=== PATIENT | female | born 1955 | race Caucasian/White ===

== ENCOUNTER 2016-07-14 08:38 | Day surgery (SDC) | payer MEDICAID ==
[2016-07-13 15:40] VITALS: BMI 23.8
[2016-07-14] VITALS (9 sets, daily range): BP systolic 106–142; BP diastolic 70–89; PULSE 67–77; RESP 12–20; Ht 165.1 cm; Wt 63.7 kg
[~2016-07-14] VITALS: Ht 165.1 cm; Wt 63.7 kg
[~2016-07-14 08:38] MED LIST: CEFAZOLIN 2 GM/50 ML (PMX) 50 ML IVPB SCH; HYDR-906 PO; LISI-313 PO; METO-448 PO; NOL20 PO; SOD CHLORIDE 0.9% 1,000 ML IV SCH
[2016-07-14 09:58] LABS: ADD SCAN DIFF NO
[2016-07-14 10:01] LABS: BASOPHILS % 0.5 % (0.0-2.0); EOSINOPHILS # 0.3 10^3/ul (0.0-0.5); EOSINOPHILS % 4.3 % (0.0-7.0); HEMATOCRIT 34.8 % (37.0-47.0); HEMOGLOBIN 11.8 g/dl (12.0-16.0); LYMPHOCYTES # 1.5 10^3/ul (0.8-2.9); LYMPHOCYTES % 25.6 % (15.0-51.0); MEAN CORPUSCULAR HEMOGLOBIN 30.8 pg (29.0-33.0); MEAN CORPUSCULAR HGB CONC 33.9 g/dl (32.0-37.0); MEAN CORPUSCULAR VOLUME 90.9 fl (82.0-101.0); MEAN PLATELET VOLUME 9.5 fl (7.4-10.4); MONOCYTE # 0.5 10^3/ul (0.3-0.9); NEUTROPHIL # 3.6 10^3/ul (1.6-7.5); NEUTROPHILS % 61.4 % (39.0-77.0); PLATELET COUNT 222 10^3/UL (140-415); RED BLOOD COUNT 3.83 10^6/ul (4.20-5.40); RED CELL DISTRIBUTION WIDTH 11.9 % (11.5-14.5); WHITE BLOOD COUNT 5.9 10^3/ul (4.8-10.8)
[2016-07-14 10:18] LABS: INR 0.87; PROTIME 11.8 Sec (12.2-14.2); PT RATIO 0.9
[2016-07-14 10:25] LABS: ALBUMIN 3.5 g/dl (3.3-4.9); ALBUMIN/GLOBULIN RATIO 1.25; TOTAL PROTEIN 6.3 g/dl (6.1-8.1)
[2016-07-14] MEDS ORDERED: LIDOCAINE 1% (MPF) 30 ML INJ ONE (10:25)
[2016-07-14 10:29] LABS: CREATININE 0.73 mg/dl (0.44-1.00)
[2016-07-14] MEDS ORDERED: PROPOFOL 20 ML ONE (10:29)
[2016-07-14] MEDS ORDERED: CEFAZOLIN 1 GM INJ ONE (10:30)
[2016-07-14] MEDS ORDERED: FENTAnyl 50 MCG/ML VIAL ONE (10:30)
[2016-07-14] MEDS ORDERED: MIDAZOLAM 1 MG/ML 2 ML INJ ONE (10:30)
[2016-07-14 10:43] LABS: PARTIAL THROMBOPLASTIN TIME 21.7 Sec (25.0-35.0)
[2016-07-14] MEDS ORDERED: hydrALAzine 20 MG INJ IV PRN (11:00)
[2016-07-14] MEDS ORDERED: LABETALOL HCL 20MG INJ IV PRN (11:00)
[2016-07-14] MEDS ORDERED: ONDANSETRON 4 MG INJ IV PRN (11:00)
[2016-07-14] MEDS ORDERED: HYDROmorphONE (0.2 MG/ML) 10ML SYG IV PRN ×3 (11:00)
[2016-07-14] MEDS ORDERED: MEPERIDINE 25 MG INJ IV PRN (11:00)
[2016-07-14] MEDS ORDERED: FENTAnyl 50 MCG/ML VIAL IV PRN ×2 (11:00)
--- NOTE | 2016-07-14 11:29 | OPR ---
DATE OF OPERATION: 07/14/2016 PREOPERATIVE DIAGNOSIS: History of breast cancer, need for chemotherapy port removal. POSTOPERATIVE DIAGNOSIS: History of breast cancer, need for chemotherapy port removal. OPERATION PERFORMED: Removal of chemotherapy port, left subclavian location. ANESTHESIA: General. ANESTHESIOLOGIST: Dr. Moya SURGEON: Mike Brennan MD INSULATION WORKER FURNACE INSTALLER: Dr. Garnica INDICATIONS FOR PROCEDURE: The patient is a 61-year-old female. She is well known to [place]. I previo usly treated her for invasive cancer of her right breast. She has completed her treatment including chemotherapy and requested removal of her chemo port. She consented and was scheduled for surgery. DESCRIPTION OF PROCEDURE: The patient was brought to the operating theater, placed under IV sedatio n. The area of the left anterior thoracic region where the port was located was prepped and draped in the usual sterile fashion. The tissue surrounding the port was then infiltrated with 1% lidocain e local anesthetic with epinephrine. The previous surgical incisional scar was then reincised. Sub cutaneous tissue was dissected with cautery. The pseudocapsule surrounding the port was dissected. The port was elevated and gently removed while pressure was held in an infraclavicular location. T he port appeared to be grossly intact, but it was sent for pathologic analysis just to confirm that it was intact. The wound was irrigated. Minimal bleeding was controlled with cautery. The skin wa s then reapproximated with 4-0 Vicryl suture in subcuticular fashion, and benzoin and Steri-Strips w ere applied. The patient tolerated procedure well. The estimated blood loss was 10 mL. There were no complications, and the patient was transported in stable condition to the recovery room. Dictated By: MIKE BRENNAN MD TL/ERICK Conf#: [id number] DID#: [id number]
--- NOTE | 2016-07-14 12:25 | RADRPT ---
PROCEDURE: XR Chest. CLINICAL INDICATION: Preoperative. Chest port removal. TECHNIQUE: Single frontal view. COMPARISON: 11/02/2015. FINDINGS: There is a left internal jugular vein tunnel chest port with the tip in the lower superior vena cava . Surgical clips are present in the right axilla. The lungs are clear. The heart size is normal. There is no pleural effusion. There is no pneumothorax. IMPRESSION: 1. Left chest port noted. 2. Prior right axillary surgery. 3. Clear lungs. RPTAT: QQ .Jesús Frausto MD, MD Date Time Electronically viewed and signed by .Jesús Frausto MD, MD on 07/14/2016 12:25 .R/
--- NOTE | 2016-07-14 19:32 | RADRPT ---
Vent Rate: 68 bpm RR Interval: 0 msec AL Interval: 146 msec QRS Duration: 94 msec QT Interval: 448 msec QTC Interval: 476 msec P-R-T [place]: 60 - 27 - 33 degrees Normal sinus rhythm Normal ECG Electronically Signed By: Rolf Zurita [id number]
== END 2016-07-14 12:20 | disposition home or self-care (01) ==
LOC: SDS 08:38
PROVIDERS: ATTEND Surgery Surgical Oncology
DX: Z45.2 Encounter for adjustment and management of vascular access device (principal); Z85.3 Personal history of malignant neoplasm of breast; I10 Essential (primary) hypertension
CPT/HCPCS: 36590; 71010; 80053; 85025; 85610; 85730; 88300; 93005; J0690; J2250; J3010; Z7512; Z7610

== ENCOUNTER 2016-08-09 11:21 | Emergency (ER) | payer MEDICAID ==
[~2016-08-09] VITALS: Ht 154.9 cm; Wt 65.5 kg
[~2016-08-09 11:21] MED LIST changes: -CEFAZOLIN 2 GM/50 ML (PMX) 50 ML IVPB SCH; -HYDR-906 PO; -LISI-313 PO; -SOD CHLORIDE 0.9% 1,000 ML IV SCH
[2016-08-09 11:24] VITALS: Ht 154.9 cm; Wt 65.5 kg
[2016-08-09] MEDS ORDERED: HYDROCODONE/APAP (5/325) TAB PO STA (12:20)
[2016-08-09] MEDS ORDERED: KETOROLAC 30 MG INJ IM STA (12:20)
[2016-08-09] MEDS ORDERED: SOD CHLORIDE 0.9% 1,000 ML IV STA (12:22)
[2016-08-09] MEDS ORDERED: KETOROLAC 30 MG INJ IV STA (12:22)
[2016-08-09 13:12] LABS: ADD SCAN DIFF NO
[2016-08-09 13:16] LABS: ADD UMIC YES; URINE BILIRUBIN (Dip) NEGATIVE (NEGATIVE); URINE BLOOD (Dip) TRACE (NEGATIVE); URINE COLOR LT. YELLOW (YELLOW); URINE GLUCOSE (Dip) NEGATIVE (NEGATIVE); URINE KETONES (Dip) NEGATIVE (NEGATIVE); URINE LEUKOCYTE ESTERASE (Dip) 1+ (NEGATIVE); URINE NITRITE (Dip) NEGATIVE (NEGATIVE); URINE TOTAL PROTEIN (Dip) NEGATIVE (NEGATIVE); URINE UROBILINOGEN (Dip) 0.2 E.U./dL (0.1-1.0)
[2016-08-09 13:25] LABS: BASOPHIL # 0.1 10^3/ul (0.0-0.1); BASOPHILS % 0.5 % (0.0-2.0); EOSINOPHILS # 0.4 10^3/ul (0.0-0.5); EOSINOPHILS % 3.6 % (0.0-7.0); HEMATOCRIT 35.5 % (37.0-47.0); HEMOGLOBIN 11.9 g/dl (12.0-16.0); LYMPHOCYTES # 1.4 10^3/ul (0.8-2.9); LYMPHOCYTES % 12.1 % (15.0-51.0); MEAN CORPUSCULAR HEMOGLOBIN 30.6 pg (29.0-33.0); MEAN CORPUSCULAR HGB CONC 33.5 g/dl (32.0-37.0); MEAN CORPUSCULAR VOLUME 91.3 fl (82.0-101.0); MEAN PLATELET VOLUME 9.7 fl (7.4-10.4); MONOCYTES % 8.5 % (0.0-11.0); NEUTROPHIL # 8.6 10^3/ul (1.6-7.5); NEUTROPHILS % 74.8 % (39.0-77.0); PLATELET COUNT 231 10^3/UL (140-415); RED BLOOD COUNT 3.89 10^6/ul (4.20-5.40); RED CELL DISTRIBUTION WIDTH 12.3 % (11.5-14.5); WHITE BLOOD COUNT 11.5 10^3/ul (4.8-10.8)
[2016-08-09 13:27] LABS: BACTERIA,URINE OCCASIONAL; URINE RBCS 0-2 /HPF (0)
[2016-08-09 13:36] LABS: ALBUMIN 4.5 g/dl (3.3-4.9); ALBUMIN/GLOBULIN RATIO 1.6; BILIRUBIN,INDIRECT 0.2 mg/dl (0-1.1); BILIRUBIN,TOTAL 0.2 mg/dl (0.2-1.3); CALCIUM 8.2 mg/dl (8.4-10.2); CREATININE 0.76 mg/dl (0.44-1.00); TOTAL PROTEIN 7.3 g/dl (6.1-8.1)
[2016-08-09] MEDS ORDERED: CEFTRIAXONE 1 GM/50 ML (PMX) 50 ML IVPB STA (13:42)
[2016-08-09] MEDS ORDERED: CEPH-443 PO (13:55)
[2016-08-09] MEDS ORDERED: PHEN-538 PO (13:55)
--- NOTE | 2016-08-09 14:18 | ERD ---
ER Documentation Chief Complaint Date/Time DATE: 08/09/16 TIME: 14:16 Chief Complaint low back pain-no trauma x 1 day HPI This is a 61-year-old female with history of breast cancer in remission sp double mastectomy presenting to the emergency department complaining of pelvic and lumbar back pain for the past day. Patient states that the pain is around moderate in severity. She admits to having painful urination and frequent urination. She denies any hematuria. Patient denies fever. She states she has not taken any medications for pain today ROS All systems reviewed and are negative except as per history of present illness. Medications Home Meds Active Scripts Phenazopyridine Hcl* (Pyridium*) 200 Mg Tab, 200 MG PO TID Y for URINARY PAIN, # 20 TAB Prov:LEROY JERRY PA-C 08/09/16 Cephalexin* (Keflex*) 500 Mg Capsule, 500 MG PO TID for 10 Days, CAP Prov:LEROY JERRY PA-C 08/09/16 Metoprolol Tartrate* (Lopressor*) 25 Mg Tab, 12.5 MG PO BID for 30 Days, TAB Prov:CHIQUITA PUGH 11/08/15 Reported Medications Tamoxifen Citrate* (Tamoxifen Citrate*) 20 Mg Tab, 20 MG PO DAILY for 30 Days 10/25/15 Allergies Allergies: Coded Allergies: No Known Allergy (Unverified , 08/09/16) PMhx/Soc History of Surgery: Yes (HYSTERECTOMY, ALISON BREAST MASTECTOMY , CHOLECYSTECTOMY ) Anesthesia Reaction: No Hx Neurological Disorder: No Hx Respiratory Disorders: No Hx Cardiac Disorders: No Hx Psychiatric Problems: No Hx Miscellaneous Medical Probl: No Hx Alcohol Use: No Hx Substance Use: No Hx Tobacco Use: No Smoking Status: Never smoker Physical Exam Vitals Vital Signs Date Time Temp Pulse Resp B/P Pulse Ox O2 Delivery O2 Flow Rate FiO2 08/09/16 14:37 98.1 72 16 128/78 100 Room Air 08/09/16 11:24 99.7 86 16 132/84 100 Physical Exam General: well-developed/well-nourished, in no apparent distress, non-toxic appearing HENT: NC/AT Eyes: Conjunctiva normal Neck: Supple Pulm: CTA bilaterally, normal breathing CV: Normal S1S2 GI: Soft, non-distended, normal bowel sounds, TTP on suprapubic region Back: No midline tenderness, no masses, No CVAT Ext: No clubbing, cyanosis, or edema Neuro: Alert and orientated Skin: intact, normal turgor Psych: Normal mood and mentation Result Diagram: 08/09/16 1305 08/09/16 1305 Results 24 hrs Laboratory Tests Test 08/09/16 12:35 08/09/16 13:05 Urine Color LT. YELLOW Urine Clarity CLEAR Urine pH 5.5 Urine Specific [place] 1.025 Urine Ketones NEGATIVE Urine Nitrite NEGATIVE Urine Bilirubin NEGATIVE Urine Urobilinogen 0.2 E.U./dL Urine Leukocyte Esterase 1+ Urine Microscopic RBC 0-2/HPF Urine Microscopic WBC 5-10/HPF Urine Epithelial Cells FEW Urine Bacteria OCCASIONAL Urine Hemoglobin TRACE Urine Glucose NEGATIVE% Urine Total Protein NEGATIVE White Blood Count 11.510^3/ul Red Blood Count 3.8910^6/ul Hemoglobin 11.9g/dl Hematocrit 35.5% Mean Corpuscular Volume 91.3fl Mean Corpuscular Hemoglobin 30.6pg Mean Corpuscular Hemoglobin Concent 33.5g/dl Red Cell Distribution Width 12.3% Platelet Count 77271^3/UL Mean Platelet Volume 9.7fl Neutrophils % 74.8% Lymphocytes % 12.1% Monocytes % 8.5% Eosinophils % 3.6% Basophils % 0.5% Nucleated Red Blood Cells % 0.0/100WBC Neutrophils # 8.610^3/ul Lymphocytes # 1.410^3/ul Monocytes # 1.010^3/ul Eosinophils # 0.410^3/ul Basophils # 0.110^3/ul Nucleated Red Blood Cells # 0.010^3/ul Sodium Level 138mmol/L Potassium Level 4.0mmol/L Chloride Level 104mmol/L Carbon Dioxide Level 24mmol/L Anion Gap 14 Blood Urea Nitrogen 11mg/dl Creatinine 0.76mg/dl Glucose Level 106mg/dl Calcium Level 8.2mg/dl Total Bilirubin 0.2mg/dl Direct Bilirubin 0.00mg/dl Indirect Bilirubin 0.2mg/dl Aspartate Amino Transf (AST/SGOT) 18IU/L Alanine Aminotransferase (ALT/SGPT) 30IU/L Alkaline Phosphatase 69IU/L Total Protein 7.3g/dl Albumin 4.5g/dl Globulin 2.80g/dl Albumin/Globulin Ratio 1.60 Lipase 62U/L Current Medications Medications (Trade) Dose Ordered Sig/Benoit Route PRN Reason Start Time Stop Time Status Last Admin Dose Admin Ketorolac Tromethamine (Toradol) 30 mg ONCE STAT IM 08/09/16 12:20 08/09/16 12:24 DC Acetaminophen/ Hydrocodone Bitart (Success (5/325)) 2 tab ONCE STAT PO 08/09/16 12:20 08/09/16 12:23 DC 08/09/16 12:39 Ketorolac Tromethamine 30 mg 30 mg ONCE STAT IV 08/09/16 12:22 08/09/16 12:24 DC 08/09/16 12:39 Sodium Chloride 1,000 ml @ 1,000 mls/hr Q1H STAT IV 08/09/16 12:22 08/09/16 13:21 DC 08/09/16 12:39 Ceftriaxone Sodium (Rocephin) 50 ml @ 100 mls/hr ONCE STAT IVPB 08/09/16 13:42 08/09/16 14:11 DC 08/09/16 14:06 Procedures/MDM This is a 61-year-old female with history of breast cancer in remission sp double mastectomy presenting to the emergency department complaining of pelvic and lumbar back pain for the past day, likely due to a urinary tract infection of ascending tract vs early pyelonephritis. On examination, patient was afebrile. She did not seem to have any CVA tenderness. I will low suspicion for nephrolithiasis at this time. She did not appear toxic or in any distress. IV access is established. Patient was given 1 L fluids and Toradol for pain. Patient significant feels better at resection. Labs showed patient had mild leukocytosis likely due to stress reaction. No evidence of any renal compromise. Urinalysis was positive for a urinary tract infection. Patient was given 1 g of Ceftriaxone in the ED and she is stable to be discharged home. Prescription for Keflex was provided. I discussed with patient to follow-up with her primary care physician. Discussed return to the ER for any worsening signs or symptoms. Patient understands and agrees with this plan Departure Diagnosis: Primary Impression: UTI (urinary tract infection) Urinary tract infection type: acute cystitis Hematuria presence: with hematuria Qualified Code: N30.01 - Acute cystitis with hematuria Condition: Stable Patient Instructions: Understanding Urinary Tract Infections (UTIs), Pyelonephritis, Female (Adult) Additional Instructions: Visite a lee mdico maana para un EXAMEN.Regrese a estas instalaciones si no se mejora willam esperbamos o willam le dijimos. [place] toda la medicina shirlene y willam se le indic. Regrese a estas instalaciones si no se mejora willam esperbamos o willam le dijimos. LEROY JERRY PA-C Aug 09, 2016 14:18
[2016-08-09 14:37] VITALS: BP 128/78; PULSE 72; RESP 16; TEMP 98.1
== END 2016-08-09 14:38 | disposition home or self-care (01) ==
LOC: FTE 11:21
DX: N30.01 Acute cystitis with hematuria (principal)
CPT/HCPCS: 80053; 81001; 83690; 85025; 87086; J0696; J1885; J7030; Z7610; 36415; 96361; 96365; 96375

== ENCOUNTER 2016-10-05 16:48 | Emergency (ER) | payer MEDICAID ==
[~2016-10-05] VITALS: Wt 66.5 kg
[~2016-10-05 16:48] MED LIST changes: +CEPH-443 PO; +PHEN-538 PO
--- NOTE | 2016-10-05 17:31 | ERD ---
ER Documentation Chief Complaint Date/Time DATE: 10/05/16 TIME: 17:28 Chief Complaint LOW BACK PAIN X1 DAY, NO INJURY, AMBULATORY HPI slip and fall yesterday, c/o lumbar back pain and neck pain. pain 11/05, tx with IBU yesterday. denies LOC, ROS All systems reviewed and are negative except as per history of present illness. Medications Home Meds Active Scripts Diazepam* (Valium*) 5 Mg Tablet, 5 MG PO Q8 for MUSCLE SPASMS, #10 TAB Prov:OSIEL,REID 10/05/16 Naproxen* (Naprosyn*) 500 Mg Tablet, 500 MG PO BID Y for PAIN AND/OR INFLAMMATION, #20 TAB Prov:OSIEL,REID 10/05/16 Phenazopyridine Hcl* (Pyridium*) 200 Mg Tab, 200 MG PO TID Y for URINARY PAIN, # 20 TAB Prov:LEROY JERRY PA-C 08/09/16 Cephalexin* (Keflex*) 500 Mg Capsule, 500 MG PO TID for 10 Days, CAP Prov:LEROY JERRYC 08/09/16 Metoprolol Tartrate* (Lopressor*) 25 Mg Tab, 12.5 MG PO BID for 30 Days, TAB Prov:CHIQUITA PUGH 11/08/15 Reported Medications Tamoxifen Citrate* (Tamoxifen Citrate*) 20 Mg Tab, 20 MG PO DAILY for 30 Days 10/25/15 Allergies Allergies: Coded Allergies: No Known Allergy (Unverified , 08/09/16) PMhx/Soc Medical and Surgical Hx: pt denies Medical Hx History of Surgery: Yes (HYSTERECTOMY, ALISON BREAST MASTECTOMY , CHOLECYSTECTOMY ) Anesthesia Reaction: No Hx Neurological Disorder: No Hx Respiratory Disorders: No Hx Cardiac Disorders: No Hx Psychiatric Problems: No Hx Miscellaneous Medical Probl: No Hx Alcohol Use: No Hx Substance Use: No Hx Tobacco Use: No Smoking Status: Never smoker Physical Exam Vitals Vital Signs Date Time Temp Pulse Resp B/P Pulse Ox O2 Delivery O2 Flow Rate FiO2 10/05/16 16:52 97.7 87 17 124/68 99 Physical Exam Const: Well-nourished, well-appearing, well-hydrated no acute distress Head: Atraumatic no hematoma, ecchymosis, or laceration Eyes: Normal Conjunctiva PERRLA, EOMI ENT: Tympanic membranes translucent without blood behind membranes, no harrell sign, nasal mucosa moist, pharynx pink uvula rises and falls with pronation. Neck: Full range of motion with rotation, pain with lateral bending, left-sided paraspinal and trapezial tenderness Resp: Respirations even and unlabored no respiratory distress Cardio: Abd: Soft, non tender, non distended. Skin: No petechiae or rashes, or ecchymosis Back: Back Exam: Skin: No bruising or rash Compartments: Soft Motor: Normal flexion and extension of bilateral hip/knee straight leg rises negative at 80 bilaterally, no with pain with abduction or abduction Sensation: Intact to light touch throughout Bones: No midline TTP paraspinal tenderness bilaterally. Ext: No cyanosis, or edema Neur: Neuro: M/S: Alert and oriented Face: EOMI, face and pharynx with normal sensation and function Motor: Normal strength throughout Sensation: Normal sensation throughout Speech: Normal Cerebel: Normal coordination Normal gait Normal finger to nose No pronator drift DTR: 2+ and symmetric upper/lower extremities Psych: Normal Mood and Affect Results 24 hrs Current Medications Medications (Trade) Dose Ordered Sig/Benoit Route PRN Reason Start Time Stop Time Status Last Admin Dose Admin Ketorolac Tromethamine (Toradol) 15 mg ONCE STAT IM 10/05/16 17:32 10/05/16 17:33 DC 10/05/16 17:41 Diazepam (Valium) 5 mg ONCE ONCE IM 10/05/16 18:00 10/05/16 18:01 DC 10/05/16 17:40 Procedures/MDM This pleasant 61-year-old female presents to emergency department after mechanical trip and fall yesterday. Patient reportedly was at a restaurant slipped in water and fell backwards. Patient reports she has neck pain and low back pain. Denies hitting her head, loss of consciousness, nausea vomiting, change in vision or behavior. I have low suspicion of a cervical injury, Nexus criteria does not recommend imaging. I have low suspicion of a lumbar fine fracture, straight leg rises are negative bilaterally at 80. Suspicion of a traumatic brain injury, subdural hematoma, subarachnoid bleed, intracranial mass. Patient's physical exam and history support cervical myopathy and low back pain after mechanical slip and fall. Patient treated with Toradol 15 mg intramuscularly and 5 mg of p.o. value in emergency department with effective improvement of symptoms. Patient teaching provided that symptoms will become a little worse tomorrow and then start to improve, treat symptoms with medication , rest, ice, return to emergency department if symptoms fail to improve as anticipated, nausea, vomiting, headache not responding to treatment, change in vision or behavior. I feel the patient is stable for discharge at this time. I have discussed results, examination findings, the treatment plan with the patient and family present prior to discharge. Indications for emergent reevaluation, side effects of medication were also discussed. All questions were answered. Patient verbalizes understanding and agrees with plan of care. Departure Diagnosis: Primary Impression: Fall from slip, trip, or stumble Encounter type: initial encounter Qualified Code: W01.0XXA - Fall from slip , trip, or stumble, initial encounter Additional Impressions: Cervical myopathy Back pain Back pain location: low back pain Chronicity: acute Back pain laterality: bilateral Sciatica presence: without sciatica Qualified Code: M54.5 - Acute bilateral low back pain without sciatica Condition: Good Patient Instructions: Back Pain (Acute Or Chronic), Fall Prevention, Neck Sprain/Strain [facility] Additional Instructions: Thank you for for coming to [facility] for your care today. Please ask your nurse or provider if you have questions about your care today and do not leave until all your questions have been answered. Please use any medications given as directed and follow-up with your doctor (or the doctor you were referred to) in the next 2-3 days. If you do not have a primary care doctor you may follow up at the community [facility] (listed below). You may also use motrin and tylenol as needed for fever and/or pain unless instructed otherwise by your provider or nurse. Indications for more urgent follow-up have been discussed, but you may return to the Emergency Department at ANY time for any worrisome or worsening symptoms. If you have abdominal pain, please know that no test or exam you received is perfect and you should follow up within 8 hours for continued pain. If you had any imaging studies today, such as an X-Ray or CT Scan, these studies will be reviewed later by a radiologist. You will be called if there are important findings that were not identified today, so make sure the contact information you provided at registration is correct. If you received any narcotic pain control medicine today, such as Vicodin, Morphine or Dilaudid, your coordination and judgment may be affected for a number of hours. Please do not drive or operate heavy machinery, and you may want someone to assist you at home. If you were given a prescription for narcotic medication, be aware that it is very addictive- use sparingly and only if necessary. REID CARTAGENA Oct 05, 2016 17:31
[2016-10-05] MEDS ORDERED: KETOROLAC 15 MG INJ IM STA (17:32)
[2016-10-05] MEDS ORDERED: DIAZEPAM 5 MG/ML SYG IM ONE (18:00)
[2016-10-05] MEDS ORDERED: NAPR-260 PO (18:15)
[2016-10-05] MEDS ORDERED: DIAZ-90 PO (18:15)
== END 2016-10-05 18:20 | disposition home or self-care (01) ==
LOC: FTE 16:48
DX: M54.5 Low back pain (principal); G72.9 Myopathy, unspecified
CPT/HCPCS: 96372; J1885; J3360; Z7502

== ENCOUNTER 2017-02-09 15:49 | Emergency (ER) | END 2017-02-09 20:37 | disposition home or self-care (01) ==

== ENCOUNTER 2017-04-03 09:27 | Day surgery (SDC) | END 2017-04-03 12:54 | disposition home or self-care (01) ==